=== PATIENT | female | born 1960 | race Caucasian/White ===

== ENCOUNTER 2024-08-06 14:48 | Outpatient (AMB) | payer OTHER, SELFPAY ==
--- NOTE | 2024-08-06 14:54 | A.OFFVIS_ITS ---
Vital Signs 08/06/24 14:55 Height 5 ft 2.3 in Weight 176 lb 5.917 oz BMI 31.9 BP 126/78 Blood Pressure Location Rt brachial Position Sitting Pulse 69 Pulse Source Pulse Oximeter Pulse Oximetry (%) 96 Oxygen Delivery Method Room Air Intake Visit Reasons: chronic cough Allergies No Known Allergies Allergy (Verified 08/06/24 14:57) HPI Comments Details: The patient is here for pulmonary evaluation. The patient is a 64 year woman with a chronic cough. The cough she has had now for about 4 years. The cough tends to be nonproductive in nature. Sometimes is aggravated when she is performing yoga when she is laying down. The cough tends to be barky in nature. Sometimes she is able to expectorate some but for the most part is dry. As far as the workup she had an x-ray back in 2022 actually a few x-rays demonstrating no acute disease although she does have a very proximal gastric bubble. In addition to that the patient underwent pulmonary function studies sometime in the fall of 2023. I did personally review the results no evidence of any obstructive nor restrictive ventilatory defects and normal gas exchange. No significant response to bronchodilators. Although explained to the patient this does not rule out asthma. The patient has tried antacid therapy because she had been reading about chronic cough and reflux disease and she also try therapies for postnasal drip. On exam in the office she was coughing and cough is indeed barky in nature. Seems to be more tracheal in nature and the possibility of tracheomalacia did come up. Patient also appears to have some degree of cobblestoning suggesting postnasal drip. No evidence of any wheezing at this time. [facility] Medical History (Updated 08/06/24 @ 21:18 by Morro Munguia MD) Tracheomalacia Upper airway cough syndrome Chronic cough Allergies Social History (Updated 08/06/24 @ 14:57 by Sabine Jiménez CMA) Patient Tobacco Use Status: Never used Tobacco Review of Systems Const Denies fever(s) ENT Reports nasal congestion, Reports nasal discharge and Reports post nasal drip Card Denies chest pain Resp Reports cough and Denies wheezing GI Denies dyspepsia, Denies heartburn and Reports loose stools Musc Reports no additional complaints Skin/Breast Denies rash Endo Reports no additional complaints Kelvin/Lymph Reports no additional complaints Aller/Immun Denies wheezing Physical Exam Vital Signs: Last Vital Signs Pulse 69 08/06/24 14:55 BP 126/78 08/06/24 14:55 Pulse Ox 96 08/06/24 14:55 Oxygen Delivery Method Room Air 08/06/24 14:55 BMI result Body Mass Index 31.9 Const General: comfortable HEENT General nose exam: Abnormal mucous membranes and turbinates present erythematous Throat: Yes postnasal drainage Neck Neck: Yes supple Chest Chest palpation & inspection: normal inspection of the chest Resp Effort & Inspection: normal respiratory effort and Actively coughing Quality: whooping Auscultation: diminished lung sounds Cardio Heart sounds: S1 normal heart sound present and S2 normal heart sound present GI Palpation (GI): Soft to palpation Skin General skin exam: no rashes or lesions noted Extrem General: Yes no clubbing, cyanosis or edema Assessment & Plan Assessment & Plan (1) Allergies: Code(s): T78.40XA - Allergy, unspecified, initial encounter Category: Medical Qualifiers: Encounter type: initial encounter Qualified Code(s): T78.40XA - Allergy, unspecified, initial encounter (2) Chronic cough: Code(s): R05.3 - Chronic cough Category: Medical (3) Upper airway cough syndrome: Code(s): R05.8 - Other specified cough Category: Medical (4) Tracheomalacia: Code(s): J39.8 - Other specified diseases of upper respiratory tract Category: Medical Plan bloodwork and allergy testing benzonate as needed for cough barium swallow CT chest with dynamic expiratory cut to assess for tracheobronchomalecia reflux diet should sleep with the head of bed elevated start acapella valve for CPT Consider PSG F/U 6-8 weeks Orders: Orders Resp Allergy Profile Region I Today R05.3 - Chronic cough, R91.1 - Solitary pulmonary nodule, T78.40XA - Allergy, unspecified, initial encounter Complete Blood Count Auto Diff Today R05.3 - Chronic cough, T78.40XA - Allergy, unspecified, initial encounter Immunoglobulin G Subclasses Today R05.3 - Chronic cough, T78.40XA - Allergy, unspecified, initial encounter Erythrocyte Sedimentation Rate Today R05.3 - Chronic cough, T78.40XA - Allergy, unspecified, initial encounter Immunoglobulin E Today R05.3 - Chronic cough, T78.40XA - Allergy, unspecified, initial encounter CT chest wo IV con Today J39.8 - Other specified diseases of upper respiratory tract, R05.3 - Chronic cough FL barium swallow Today K21.9 - Gastro-esophageal reflux disease without esophagitis Medications: New benzonatate 200 mg PO BID 30 days PRN 60 caps 6RF cough Coding Level of Care Code New Pt Level 4 (71537) Diagnoses Allergy, initial encounter T78.40XA Encounter type: initial encounter Chronic cough R05.3 Upper airway cough syndrome R05.8 Tracheomalacia J39.8 Time Spent (min) 40
[2024-08-06 14:55] VITALS: BP 126/78; PULSE 69; O2SAT 96; BMI 31.9
== END 2024-08-06 15:39 | disposition home or self-care (01) ==
PROVIDERS: PCP Nurse Practitioner; Referring Provider Nurse Practitioner; Visit Provider Hospitalist
DX: T78.40XA Allergy, unspecified, initial encounter (principal); R05.3 Chronic cough; R05.8 Other specified cough; J39.8 Other specified diseases of upper respiratory tract
CPT/HCPCS: 99204

== ENCOUNTER → 2024-08-06 14:48 | Outpatient (BNVA) | payer OTHER, SELFPAY | PROVIDERS: PCP Nurse Practitioner; Referring Provider Nurse Practitioner; Visit Provider Hospitalist ==

== ENCOUNTER 2024-09-20 14:11 | Outpatient (REF) | payer OTHER, SELFPAY ==
--- NOTE | ~2024-09-20 | CT_ITS ---
CLINICAL HISTORY: R05.3 - Chronic cough CT chest without contrast Comparison: None Findings: The heart size is normal. The visualized thyroid and mediastinum are unremarkable. The lungs are clear. The visualized upper abdomen is unremarkable. No acute fractures. IMPRESSION: 1. Unremarkable chest CT. This document has been electronically signed by: Braulio Bruce MD on 09/23/2024 12:45:18
== END 2024-09-20 14:12 | disposition home or self-care (01) ==
LOC: HO.CT 14:11
PROVIDERS: Visit Provider Hospitalist
DX: J39.8 Other specified diseases of upper respiratory tract (principal); R05.3 Chronic cough
CPT/HCPCS: 71250

== ENCOUNTER → 2024-09-20 14:15 | Outpatient (BNV) | payer OTHER, SELFPAY | PROVIDERS: Visit Provider Nuclear Medicine | DX: R05.3 Chronic cough (principal) | CPT/HCPCS: 71250 ==

== ENCOUNTER 2024-09-30 10:36 | Outpatient (REF) | payer OTHER, SELFPAY ==
[2024-09-30 10:52] LABS: MANUAL DIFF FLAG NO
[2024-09-30 11:17] LABS: Basophils Absolute Auto 0.1 X10*3/uL (0.0-0.2); Eosinophils Absolute Auto 0.1 X10*3/uL (0.0-0.4); Eosinophils Percent Auto 1.9 % (0-4); Hematocrit 42.7 % (37.0-47.0); Hemoglobin 14.1 g/dl (12.0-16.0); Imm Gran Abs Auto 0.02 X10*3/uL (0.00-0.03); Imm Gran Pct Auto 0.3 % (0.0-0.4); Lymphocytes Absolute Auto 2.1 X10*3/uL (1.2-4.9); Lymphocytes Percent Auto 30.5 % (20-40); Mean Corpuscular Hemoglobin 28.7 pg (27.0-33.0); Mean Platelet Volume 9.4 fL (9.4-12.3); Monocytes Absolute Auto 0.7 X10*3/uL (0.1-1.2); Monocytes Percent Auto 9.7 % (2-11); Neutrophils Absolute Auto 3.9 x10*3/uL (2.0-8.3); Neutrophils Percent Auto 56.6 % (45-73); Platelet Count 242 X10*3/uL (160-400); Red Blood Count 4.91 X10*6/uL (4.20-5.50); White Blood Count 6.8 X10*3/uL (4.8-10.8)
[2024-09-30 12:00] LABS: Erythrocyte Sedimentation Rate 5 MM/HR (0-20)
[2024-10-02 12:49] LABS: Immunoglobulin G Subclass 1 521 mg/dL (382-929); Immunoglobulin G Subclass 2 501 mg/dL (241-700); Immunoglobulin G Subclass 3 34 mg/dL (22-178); Immunoglobulin G Subclass 4 21.7 mg/dL (4-86); Immunoglobulin G Total 1009 mg/dL (600-1540)
[2024-10-05 04:49] LABS: Class Alternaria alternata 0; Class Aspergillus fumigatus 0; Class Bermuda Grass 0; Class Birch 0; Class Cat Dander 0; Class Cladosporium herbarum 0; Class Cockroach 0; Class Common Ragweed 0; Class Cottonwood 0; Class Derm. pterony 0; Class Dermatophagoides farinae 0; Class Dog Dander 0; Class Elm 0; Class Maple Box Elder 0; Class Mountain Cedar 0; Class Mouse Urine Protein 0; Class Mugwort 0; Class Oak 0; Class Penicillium crysogenum 0; Class Rough Pigweed 0; Class Sheep Sorrel 0; Class Sycamore 0; Class Timothy Grass 0; Class Walnut Tree 0; Class White Ash 0; Class White Mulberry 0; D001 IgE D pteronyssinus <0.10 kU/L; D002 - IgE D farinae <0.10 kU/L; E001 - IgE Cat Dander <0.10 kU/L; E005 - IgE Dog Dander <0.10 kU/L; E072-IgE Mouse Urine <0.10 kU/L; G002 IgE Bermuda Grass <0.10 kU/L; G006 - IgE Timothy Grass <0.10 kU/L; I006-IgE Cockroach, German <0.10 kU/L; Immunoglobulin E 3 kU/L (<OR=114); M001 IgE Penicillium chrysogen <0.10 kU/L; M002 - IgE Cladosporium herbar <0.10 kU/L; M003 - IgE Aspergillus fumigat <0.10 kU/L; M006 - IgE Alternaria alternat <0.10 kU/L; T001 IgE Maple/Box Elder <0.10 kU/L; T003 IgE Common Silver Birch <0.10 kU/L; T006 - IgE Cedar, Mountain <0.10 kU/L; T007 - IgE Oak, White <0.10 kU/L; T008 IgE Elm, American <0.10 kU/L; T010 - IgE Walnut <0.10 kU/L; T011 - IgE Maple Leaf Sycamore <0.10 kU/L; T014 - IgE Cottonwood <0.10 kU/L; T015 - IgE Ash, White <0.10 kU/L; T070 - IgE White Mulberry <0.10 kU/L; W001 - IgE Ragweed, Short <0.10 kU/L; W006 - IgE Mugwort <0.10 kU/L; W014 IgE Pigweed, Common <0.10 kU/L; W018 IgE Sheep Sorrel <0.10 kU/L
== END 2024-09-30 10:37 | disposition home or self-care (01) ==
LOC: HO.LAB 10:36
PROVIDERS: PCP Nurse Practitioner; Visit Provider Hospitalist
DX: R91.1 Solitary pulmonary nodule (principal); T78.40XA Allergy, unspecified, initial encounter; R05.3 Chronic cough
CPT/HCPCS: 36415; 82784; 82785; 85025; 85652; 86003

== ENCOUNTER 2024-10-08 14:44 | Outpatient (AMB) | payer OTHER, SELFPAY ==
[2024-10-08 14:58] VITALS: BP 118/72; PULSE 69; O2SAT 97; BMI 32.5
--- NOTE | 2024-10-08 14:58 | MHC.OFFVIS ---
Vital Signs 10/08/24 14:58 Height 5 ft 2.3 in Weight 179 lb 10.828 oz BMI 32.5 BP 118/72 Blood Pressure Location Rt brachial Position Sitting Pulse 69 Pulse Source Pulse Oximeter Pulse Oximetry (%) 97 Oxygen Delivery Method Room Air Intake Visit Reasons: Cough Allergies No Known Allergies Allergy (Verified 10/08/24 15:00) HPI Comments Details: The patient is a 64 year woman with a chronic cough. The cough she has had now for about 4 years. The cough tends to be nonproductive in nature. Sometimes is aggravated when she is performing yoga when she is laying down. The cough tends to be barky in nature. Sometimes she is able to expectorate some but for the most part is dry. As far as the workup she had an x-ray back in 2022 actually a few x-rays demonstrating no acute disease although she does have a very proximal gastric bubble. In addition to that the patient underwent pulmonary function studies sometime in the fall of 2023. I did personally review the results no evidence of any obstructive nor restrictive ventilatory defects and normal gas exchange. No significant response to bronchodilators. Although explained to the patient this does not rule out asthma. The patient has tried antacid therapy because she had been reading about chronic cough and reflux disease and she also try therapies for postnasal drip. On exam in the office she was coughing and cough is indeed barky in nature. Seems to be more tracheal in nature and the possibility of tracheomalacia did come up. Patient also appears to have some degree of cobblestoning suggesting postnasal drip. No evidence of any wheezing at this time. 10/08/2024 the patient is here for pulmonary follow-up visit. She continues have cough. The cough is barky in nature. Appears to be mainly the central airways. We did talk about the possibility tracheomalacia. She did undergo a CT scan of the chest that we personally reviewed. She did have inspiratory and expiratory cuts. The patient did have some collapsibility of the trachea but not more than 50%. The patient also had blood work. Her immunological workup her allergy workup was all negative. She is still waiting to hear back from the barium swallow. She should be scheduled for the end of the month. In the meantime she does continue to follow the reflux diet and she is elevated. The patient is also using the Bentson a split some partial improvement of her symptoms. She did try to come off and when she came off her symptoms did come back significantly. The patient does not have any issues with snoring although she does have some daytime drowsiness. [place] score is elevated 11/24. At some point she may benefit from a sleep study. Right now will wait for the barium swallow. Once we look at the results we will looking to performing a bronchoscopy to address the question of tracheobronchomalacia. Do find tracheobronchomalacia we did talk about potential treatment options. [facility] Medical History (Updated 08/06/24 @ 21:18 by Morro Munguia MD) Tracheomalacia Upper airway cough syndrome Chronic cough Allergies Social History Patient Tobacco Use Status: Never used Tobacco Review of Systems Const Denies fever(s) ENT Reports nasal congestion, Reports nasal discharge and Reports post nasal drip Card Denies chest pain Resp Reports cough and Denies wheezing GI Denies dyspepsia, Denies heartburn and Reports loose stools Musc Reports no additional complaints Skin/Breast Denies rash Endo Reports no additional complaints Kelvin/Lymph Reports no additional complaints Aller/Immun Denies wheezing Physical Exam Vital Signs: Last Vital Signs Pulse 69 10/08/24 14:58 BP 118/72 10/08/24 14:58 Pulse Ox 97 10/08/24 14:58 Oxygen Delivery Method Room Air 10/08/24 14:58 BMI result Body Mass Index 32.5 Const General: comfortable HEENT General nose exam: Abnormal mucous membranes and turbinates present erythematous Throat: Yes postnasal drainage Neck Neck: Yes supple Chest Chest palpation & inspection: normal inspection of the chest Resp Effort & Inspection: normal respiratory effort and Actively coughing Quality: whooping Auscultation: diminished lung sounds Cardio Heart sounds: S1 normal heart sound present and S2 normal heart sound present GI Palpation (GI): Soft to palpation Skin General skin exam: no rashes or lesions noted Extrem General: Yes no clubbing, cyanosis or edema Results Reviewed Results Reviewed: personally reviewed CT chest with LLL atelectasis and pleural based reaction. Minimal collapsibility on the trachea and central airways on exhalation. Assessment & Plan Assessment & Plan (1) Allergies: Code(s): T78.40XA - Allergy, unspecified, initial encounter Category: Medical Qualifiers: Encounter type: initial encounter Qualified Code(s): T78.40XA - Allergy, unspecified, initial encounter (2) Chronic cough: Code(s): R05.3 - Chronic cough Category: Medical (3) Upper airway cough syndrome: Code(s): R05.8 - Other specified cough Category: Medical (4) Tracheomalacia: Code(s): J39.8 - Other specified diseases of upper respiratory tract Category: Medical Plan benzonate as needed for cough barium swallow pending Reflux diet should sleep with the head of bed elevated acapella valve for CPT Consider PSG plan for bronchoscopy with MAC F/U 3-4 months Coding Level of Care Code Est Pt Level 5 (86296) Diagnoses Allergy, initial encounter T78.40XA Encounter type: initial encounter Chronic cough R05.3 Upper airway cough syndrome R05.8 Tracheomalacia J39.8 Time Spent (min) 35
== END 2024-10-08 15:31 | disposition home or self-care (01) ==
LOC: HO.HPS 14:45
PROVIDERS: PCP Nurse Practitioner; Visit Provider Hospitalist
DX: R05.3 Chronic cough (principal); J39.8 Other specified diseases of upper respiratory tract
CPT/HCPCS: 99214

== ENCOUNTER → 2024-10-08 14:44 | Outpatient (BNVA) | payer OTHER, SELFPAY | PROVIDERS: PCP Nurse Practitioner; Visit Provider Hospitalist | DX: T78.40XA Allergy, unspecified, initial encounter (principal); R05.3 Chronic cough ==

== ENCOUNTER 2024-10-24 09:18 | Outpatient (REF) | payer OTHER, SELFPAY ==
--- NOTE | ~2024-10-24 | FL_ITS ---
EXAMINATION: XR FLUOROSCOPY ESOPHAGRAM CLINICAL INFORMATION: Persistent cough, no clear etiology. Rule out GERD or aspiration. COMPARISON: None. Correlation made with CT chest 09/20/2024. TECHNIQUE: Fluoroscopic air contrast upper GI examination was performed utilizing standard techniques with thin and thick barium and effervescent granules. Numerous spot images were obtained. Several fluoroscopic image hold cine sequences were also obtained. FINDINGS: UPPER GI SERIES: Lateral cine images of the oropharynx and hypopharynx demonstrate normal swallow mechanism with normal epiglottic inversion and soft palate elevation. No laryngeal penetration, glottic or subglottic aspiration identified. No nasopharyngeal reflux present. Hypopharyngeal structures appear normal without evidence of mass or diverticulum. There was no significant cricopharyngeal achalasia. Dual and single contrast images of the esophagus demonstrate normal caliber, contour, and mucosal pattern. No evidence of stricture, mass, or ulcerations identified. Esophageal peristalsis was minimally disordered. No evidence of hiatus hernia identified. Only minimal gastroesophageal reflux was observed during the exam, to the approximate carinal level. Dual contrast and single contrast images of the stomach demonstrated normal contour and mucosal pattern without evidence of mass, ulceration, or other abnormality. Contrast freely passed into the gastric antrum and duodenal bulb without delay. Single and air-contrast images of the duodenal bulb demonstrate no abnormality. The duodenal sweep has a normal appearance, course, and mucosal fold appearance. FLUOROSCOPY TIME: 3 minutes, 10 seconds Number of Spot Images:8 Number of cines obtained: 14 DOSE AREA PRODUCT: [id number] uGy-m2 (microgray-meter squared) FL/FL barium swallow IMPRESSION: 1. Minimal gastroesophageal reflux identified. 2. Minimally disordered esophageal peristalsis. 3. No evidence of laryngeal penetration, glottic or subglottic aspiration. 4. Otherwise, normal esophagram/upper GI series. Electronically signed by: Scooby Quinonez MD 10/25/2024 08:23 AM EDT
== END 2024-10-24 09:19 | disposition home or self-care (01) ==
LOC: HO.XRAY 09:18
PROVIDERS: PCP Nurse Practitioner; Visit Provider Hospitalist
DX: K21.9 Gastro-esophageal reflux disease without esophagitis (principal)
CPT/HCPCS: 74220

== ENCOUNTER → 2024-10-24 09:21 | Outpatient (BNV) | payer OTHER, SELFPAY | PROVIDERS: PCP Nurse Practitioner; Visit Provider Radiology Diagnostic Radiology | DX: K21.9 Gastro-esophageal reflux disease without esophagitis (principal); R05.9 Cough, unspecified | CPT/HCPCS: 74221 ==

== ENCOUNTER 2025-01-20 15:15 | Outpatient (AMB) | payer OTHER, SELFPAY ==
[2025-01-20 15:20] VITALS: BP 114/60; PULSE 75; O2SAT 95; BMI 32.9
--- NOTE | 2025-01-20 15:20 | A.OFFVIS_ITS ---
Vital Signs 01/20/25 15:20 Height 5 ft 2 in Weight 179 lb 10.828 oz BMI 32.9 BP 114/60 Blood Pressure Location Lt brachial Position Sitting Pulse 75 Pulse Source Pulse Oximeter Pulse Oximetry (%) 95 Oxygen Delivery Method Room Air Intake Visit Reasons: S/p barium swallow Accompanied by: Self / Same As Patient Allergies No Known Allergies Allergy (Verified 01/20/25 15:22) HPI Comments Details: The patient is a 64 year woman with a chronic cough. The cough she has had now for about 4 years. The cough tends to be nonproductive in nature. Sometimes is aggravated when she is performing yoga when she is laying down. The cough tends to be barky in nature. Sometimes she is able to expectorate some but for the most part is dry. As far as the workup she had an x-ray back in 2022 actually a few x-rays demonstrating no acute disease although she does have a very proximal gastric bubble. In addition to that the patient underwent pulmonary function studies sometime in the fall of 2023. I did personally review the results no evidence of any obstructive nor restrictive ventilatory defects and normal gas exchange. No significant response to bronchodilators. Although explained to the patient this does not rule out asthma. The patient has tried antacid therapy because she had been reading about chronic cough and reflux disease and she also try therapies for postnasal drip. On exam in the office she was coughing and cough is indeed barky in nature. Seems to be more tracheal in nature and the possibility of tracheomalacia did come up. Patient also appears to have some degree of cobblestoning suggesting postnasal drip. No evidence of any wheezing at this time. 10/08/2024 the patient is here for pulmonary follow-up visit. She continues have cough. The cough is barky in nature. Appears to be mainly the central airways. We did talk about the possibility tracheomalacia. She did undergo a CT scan of the chest that we personally reviewed. She did have inspiratory and expiratory cuts. The patient did have some collapsibility of the trachea but not more than 50%. The patient also had blood work. Her immunological workup her allergy workup was all negative. She is still waiting to hear back from the barium swallow. She should be scheduled for the end of the month. In the meantime she does continue to follow the reflux diet and she is elevated. The patient is also using the Bentson a split some partial improvement of her symptoms. She did try to come off and when she came off her symptoms did come back significantly. The patient does not have any issues with snoring although she does have some daytime drowsiness. [place] score is elevated 24. At some point she may benefit from a sleep study. Right now will wait for the barium swallow. Once we look at the results we will looking to performing a bronchoscopy to address the question of tracheobronchomalacia. Do find tracheobronchomalacia we did talk about potential treatment options. 01/20/2025 the patient is here for a pulmonary follow-up visit. She is still struggling with a cough. No significant improvement. Still coughing at nighttime. The cough is moderate severe. Typically cost about 10 minutes and then settles down. She has already been treated for upper airway cough syn drome. Also tried the reflux diet as much as she can. She did undergo a barium swallow demonstrating some mild reflux disease. Was questioning about H. pylori as being a potential culprit since her sister had very similar symptoms since she was diagnosed with H pylori and she was treated and feels a lot better. Although no significant gastritis noted on her barium swallow. She also had an endoscopy previously demonstrating normal gastric mucosa and H pylori was not tested. I did recommend for her to start a PPI for few weeks and see if there is any relief of her symptoms. If it persists she can always call and we can have her undergo a methacholine challenge and/or bronchoscopy. And also have her perform a H pylori breath test to see if there is any evidence of H pylori that she would be treated as she understands that this is very difficult treatment to complete. [facility] Medical History (Updated 08/06/24 @ 21:18 by Morro Munguia MD) Tracheomalacia Upper airway cough syndrome Chronic cough Allergies Social History Patient Tobacco Use Status: Never used Tobacco Review of Systems Const Denies fever(s) ENT Reports nasal congestion, Reports nasal discharge and Reports post nasal drip Card Denies chest pain Resp Reports cough and Denies wheezing GI Denies dyspepsia, Denies heartburn and Reports loose stools Musc Reports no additional complaints Skin/Breast Denies rash Endo Reports no additional complaints Kelvin/Lymph Reports no additional complaints Aller/Immun Denies wheezing Physical Exam Vital Signs: Last Vital Signs Pulse 75 01/20/25 15:20 BP 114/60 01/20/25 15:20 Pulse Ox 95 01/20/25 15:20 Oxygen Delivery Method Room Air 01/20/25 15:20 BMI result Body Mass Index 32.9 Const General: comfortable HEENT General nose exam: Abnormal mucous membranes and turbinates present erythematous Throat: Yes postnasal drainage Neck Neck: Yes supple Chest Chest palpation & inspection: normal inspection of the chest Resp Effort & Inspection: normal respiratory effort and no cough Auscultation: diminished lung sounds Cardio Heart sounds: S1 normal heart sound present and S2 normal heart sound present GI Palpation (GI): Soft to palpation Skin General skin exam: no rashes or lesions noted Extrem General: Yes no clubbing, cyanosis or edema Assessment & Plan Assessment & Plan (1) Allergies: Code(s): T78.40XA - Allergy, unspecified, initial encounter Category: Medical Qualifiers: Encounter type: initial encounter Qualified Code(s): T78.40XA - Allergy, unspecified, initial encounter (2) Chronic cough: Code(s): R05.3 - Chronic cough Category: Medical (3) Upper airway cough syndrome: Code(s): R05.8 - Other specified cough Category: Medical (4) Tracheomalacia: Code(s): J39.8 - Other specified diseases of upper respiratory tract Category: Medical Plan benzonate as needed for cough barium swallow with mild GERD Reflux diet should sleep with the head of bed elevated Start PPI for 6-8 weeks acapella valve for CPT Consider Hpylori breath test Consider Methacholine challenge plan for bronchoscopy with MAC F/U 3-4 months Medications: New omeprazole 40 mg PO DAILY 30 caps 3RF 30 days Refilled benzonatate 200 mg PO BID PRN 60 caps 6RF cough 30 days Coding Level of Care Code Est Pt Level 4 (81294) Complex EM visit Add On G2211 Diagnoses Allergy, initial encounter T78.40XA Encounter type: initial encounter Chronic cough R05.3 Upper airway cough syndrome R05.8 Tracheomalacia J39.8 Time Spent (min) 18
== END 2025-01-20 15:50 | disposition home or self-care (01) ==
LOC: HO.HPS 15:18
PROVIDERS: PCP Nurse Practitioner; Visit Provider Hospitalist
DX: T78.40XA Allergy, unspecified, initial encounter (principal); R05.3 Chronic cough; R05.8 Other specified cough; J39.8 Other specified diseases of upper respiratory tract
CPT/HCPCS: 99214; G2211

== ENCOUNTER 2025-04-25 14:08 | Outpatient (AMB) | payer OTHER, SELFPAY ==
[2025-04-25 14:22] VITALS: BP 110/64; PULSE 83; O2SAT 95; BMI 31.0
--- NOTE | 2025-04-25 14:22 | MHC.OFFVIS ---
Vital Signs 04/25/25 14:22 Height 5 ft 2 in Weight 169 lb 12.095 oz BMI 31.0 BP 110/64 Blood Pressure Location Lt brachial Position Sitting Pulse 83 Pulse Source Pulse Oximeter Pulse Oximetry (%) 95 Oxygen Delivery Method Room Air Intake Visit Reasons: Cough Investigations Director Required: No Accompanied by: Self / Same As Patient Allergies No Known Allergies Allergy (Verified 04/25/25 14:25) HPI Comments Details: The patient is a 65 year woman with a chronic cough. The cough she has had now for about 4 years. The cough tends to be nonproductive in nature. Sometimes is aggravated when she is performing yoga when she is laying down. The cough tends to be barky in nature. Sometimes she is able to expectorate some but for the most part is dry. As far as the workup she had an x-ray back in 2022 actually a few x-rays demonstrating no acute disease although she does have a very proximal gastric bubble. In addition to that the patient underwent pulmonary function studies sometime in the fall of 2023. I did personally review the results no evidence of any obstructive nor restrictive ventilatory defects and normal gas exchange. No significant response to bronchodilators. Although explained to the patient this does not rule out asthma. The patient has tried antacid therapy because she had been reading about chronic cough and reflux disease and she also try therapies for postnasal drip. On exam in the office she was coughing and cough is indeed barky in nature. Seems to be more tracheal in nature and the possibility of tracheomalacia did come up. Patient also appears to have some degree of cobblestoning suggesting postnasal drip. No evidence of any wheezing at this time. 10/08/2024 the patient is here for pulmonary follow-up visit. She continues have cough. The cough is barky in nature. Appears to be mainly the central airways. We did talk about the possibility tracheomalacia. She did undergo a CT scan of the chest that we personally reviewed. She did have inspiratory and expiratory cuts. The patient did have some collapsibility of the trachea but not more than 50%. The patient also had blood work. Her immunological workup her allergy workup was all negative. She is still waiting to hear back from the barium swallow. She should be scheduled for the end of the month. In the meantime she does continue to follow the reflux diet and she is elevated. The patient is also using the Bentson a split some partial improvement of her symptoms. She did try to come off and when she came off her symptoms did come back significantly. The patient does not have any issues with snoring although she does have some daytime drowsiness. [place] score is elevated 05/26. At some point she may benefit from a sleep study. Right now will wait for the barium swallow. Once we look at the results we will looking to performing a bronchoscopy to address the question of tracheobronchomalacia. Do find tracheobronchomalacia we did talk about potential treatment options. 01/20/2025 the patient is here for a pulmonary follow-up visit. She is still struggling with a cough. No significant improvement. Still coughing at nighttime. The cough is moderate severe. Typically cost about 10 minutes and then settles down. She has already been treated for upper airway cough syndrome. Also tried the reflux diet as much as she can. She did undergo a barium swallow demonstrating some mild reflux disease. Was questioning about H. pylori as being a potential culprit since her sister had very similar symptoms since she was diagnosed with H pylori and she was treated and feels a lot better. Although no significant gastritis noted on her barium swallow. She also had an endoscopy previously demonstrating normal gastric mucosa and H pylori was not tested. I did recommend for her to start a PPI for few weeks and see if there is any relief of her symptoms. If it persists she can always call and we can have her undergo a methacholine challenge and/or bronchoscopy. And also have her perform a H pylori breath test to see if there is any evidence of H pylori that she would be treated as she understands that this is very difficult treatment to complete. 04/25/2025 the patient is here for a pulmonary follow-up visit. The patient overall has been feeling better. 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 She needed surgery. Afterwards she did have to go back to the hospital with intra-abdominal abscesses. Unfortunately could not be drained just given antibiotics. Then her course was complicated with hematuria. Ultimately starting to feel better although still tired. Although throughout her hospitalization she noticed her cough is actually better. She stopped taking the PPI and she has been sleeping a little bit more elevated. Therefore she is sleeping elevated also home. She is monitoring what she is eating to make sure in her cough has still been settled which is reassuring. She is no longer using the Tessalon Perles or the PPI. If her symptoms do reoccurred we can always consider performing a methacholine bronchial challenge to assess for reactive airway disease. We did review her blood work from [facility] no significant anemia. And she did have a CT scan of the abdomen and at least lung cuts on the CT scan of the abdomen with clear without any effusions or abnormalities. Otherwise the patient is doing well will follow-up around 6 months from now if any worsening issues she can always call for further recommendations. [facility] Medical History (Updated 08/06/24 @ 21:18 by Morro Munguia MD) Tracheomalacia Upper airway cough syndrome Chronic cough Allergies Social History Patient Tobacco Use Status: Never used Tobacco Review of Systems Const Denies fever(s) ENT Reports nasal congestion, Reports nasal discharge and Reports post nasal drip Card Denies chest pain Resp Reports cough and Denies wheezing GI Denies dyspepsia, Denies heartburn and Reports loose stools Musc Reports no additional complaints Skin/Breast Denies rash Endo Reports no additional complaints Kelvin/Lymph Reports no additional complaints Aller/Immun Denies wheezing Physical Exam Vital Signs: Last Vital Signs Pulse 83 04/25/25 14:22 BP 110/64 04/25/25 14:22 Pulse Ox 95 04/25/25 14:22 Oxygen Delivery Method Room Air 04/25/25 14:22 BMI result Body Mass Index 31.0 Const General: comfortable HEENT General nose exam: Abnormal mucous membranes and turbinates present erythematous Throat: Yes postnasal drainage Neck Neck: Yes supple Chest Chest palpation & inspection: normal inspection of the chest Resp Effort & Inspection: normal respiratory effort and no cough Auscultation: diminished lung sounds Cardio Heart sounds: S1 normal heart sound present and S2 normal heart sound present GI Palpation (GI): Soft to palpation Skin General skin exam: no rashes or lesions noted Extrem General: Yes no clubbing, cyanosis or edema Assessment & Plan Assessment & Plan (1) Allergies: Code(s): T78.40XA - Allergy, unspecified, initial encounter Category: Medical Qualifiers: Encounter type: initial encounter Qualified Code(s): T78.40XA - Allergy, unspecified, initial encounter (2) Chronic cough: Code(s): R05.3 - Chronic cough Category: Medical (3) Upper airway cough syndrome: Code(s): R05.8 - Other specified cough Category: Medical (4) Tracheomalacia: Code(s): J39.8 - Other specified diseases of upper respiratory tract Category: Medical Plan benzonate as needed for cough barium swallow with mild GERD Reflux diet should sleep with the head of bed elevated acapella valve for CPT start Trazadone as needed for sleep F/U 8-12 months Medications: New trazodone 50 mg PO BEDTIME PRN 30 tabs 6RF sleep 30 days Coding Level of Care Code Est Pt Level 4 (44975) Complex EM visit Add On G2211 Diagnoses Allergy, initial encounter T78.40XA Encounter type: initial encounter Chronic cough R05.3 Upper airway cough syndrome R05.8 Tracheomalacia J39.8 Time Spent (min) 16
== END 2025-04-25 14:56 | disposition home or self-care (01) ==
LOC: HO.HPS 14:09
PROVIDERS: PCP Nurse Practitioner; Visit Provider Hospitalist
DX: T78.40XA Allergy, unspecified, initial encounter (principal); R05.3 Chronic cough; R05.8 Other specified cough; J39.8 Other specified diseases of upper respiratory tract
CPT/HCPCS: 99214; G2211